=== PATIENT | female | born 1940 | race Caucasian/White ===

== ENCOUNTER 2017-11-05 12:55 | Emergency (ER) | payer MEDICARE, BC ==
[2017-11-05] MEDS ORDERED: traMADol 50 MG Tab PO ONE ×2 (13:20→14:24)
--- NOTE | 2017-11-05 13:25 | EDM.PDOC ---
ED HPI GENERAL MEDICAL PROBLEM - General Chief Complaint: General Stated Complaint: FEET SWOLLEN, CAN'T WALK, WEAKNESS Time Seen by Provider: 11/05/17 13:00 Source of Information: Reports: Patient, Old Records History Limitations: Reports: No Limitations - History of Present Illness INITIAL COMMENTS - FREE TEXT/NARRATIVE: Lorin comes into [facility] ED with complaints of generalized pain affecting muscles and joints, worse on the L side today. Her supply of Tramadol for generalized pain was discontinued by her PCP last month, and she has felt miserable ever since. There is a PMH of polymyalgia rheumatica and rheumatoid arthritis, managed by a radio operator including Prednison 20mg per day and Methotrexate 7 tabs once weekly. Generalized Pain Score (Numeric/FACES): 10 - Related Data Allergies Allergy/AdvReac Type Severity Reaction Status Date / Time amoxicillin trihydrate Allergy Nausea Verified 11/05/17 13:03 [From Augmentin] codeine Allergy Dizziness Verified 11/05/17 13:03 potassium clavulanate Allergy Nausea Verified 11/05/17 13:03 [From Augmentin] dust Allergy Cough Uncoded 11/05/17 13:03 mold Allergy Cough Uncoded 11/05/17 13:03 Home Meds: Home Meds Acetaminophen [Tylenol Arthritis Pain] 1,000 mg PO BID PRN 03/21/14 [History] Aspirin 325 mg PO DAILY 03/21/14 [History] Calcium Carbonate [Calcium] 1,000 mg PO DAILY 03/21/14 [History] Calcium Polycarbophil [Fiber Tabs] 625 mg PO DAILY 03/21/14 [History] Clopidogrel [Plavix] 75 mg PO DAILY 03/21/14 [History] Cyanocobalamin (Vitamin B12) [Vitamin B12] 1,000 mcg PO DAILY 03/21/14 [History] Fexofenadine/Pseudoephedrine [Melodie-D 12 Hour Tablet] 1 tab PO BID PRN [History] Metoprolol Tartrate 25 mg PO BID 03/21/14 [History] Isabella-3 Fatty Acids [Isabella-3] 1,000 mg PO BID 03/21/14 [History] Sennosides/Docusate Sodium [Senna S Tablet] 3 each PO QPM 03/21/14 [History] Simvastatin [Zocor] 40 mg PO BEDTIME 03/21/14 [History] Folic Acid 1 mg PO DAILY 11/05/17 [History] Gabapentin [Neurontin] 100 mg PO BID 11/05/17 [History] Levothyroxine [Synthroid] 50 mcg PO ACBREAKFAST 11/05/17 [History] Methotrexate Sodium [Methotrexate] 2.5 mg PO ASDIRECTED 11/05/17 [History] Past Medical History Cardiovascular History: Reports: Hypertension Musculoskeletal History: Reports: RA, Other (See Below) (polymyalgia rheumatica) Social & Family History - Tobacco Use Years of Tobacco use: 10 - Caffeine Use Caffeine Use: Reports: Coffee, Soda - Alcohol Use Days Per Week of Alcohol Use: 0 - Recreational Drug Use Recreational Drug Use: No ED ROS GENERAL - Review of Systems Review Of Systems: See Below Constitutional: Reports: Malaise, Weakness, Fatigue HEENT: Reports: Hearing Loss Respiratory: Reports: No Symptoms Cardiovascular: Reports: Edema (dependent in ankles and feet) Endocrine: Reports: Fatigue GI/Abdominal: Reports: No Symptoms : Reports: No Symptoms Musculoskeletal: Reports: Neck Pain, Shoulder Pain, Arm Pain, Back Pain, Hand Pain, Leg Pain, Foot Pain, Joint Pain, Joint Swelling, Muscle Pain Skin: Reports: No Symptoms Neurological: Reports: No Symptoms Psychiatric: Reports: No Symptoms Hematologic/Lymphatic: Reports: No Symptoms Immunologic: Reports: No Symptoms ED EXAM, GENERAL - Physical Exam Exam: See Below Exam Limited By: No Limitations General Appearance: Alert, WD/WN, No Apparent Distress, Obese Eye Exam: Bilateral Eye: EOMI, Normal Inspection, PERRL Ears: Normal External Exam Nose: Normal Inspection Throat/Mouth: Normal Inspection, Normal Lips, Normal Oropharynx, Normal Voice Head: Normocephalic, Other (cushingoid facies) Neck: Normal Inspection, Supple Respiratory/Chest: Lungs Clear, Normal Breath Sounds, Chest Non-Tender Cardiovascular: Regular Rate, Rhythm, No Murmur GI/Abdominal: Normal Bowel Sounds, Soft, No Organomegaly, No Distention, No Mass (Female) Exam: Deferred Rectal (Female) Exam: Deferred Back Exam: Decreased Range of Motion Extremities: Joint Swelling (2nd and 3rd MCP, knees), Limited Range of Motion ( L shoulder to FF, ABD, ADD, and EXT) Neurological: Alert, Oriented, CN II-XII Intact Psychiatric: Normal Affect, Normal Mood Skin Exam: Warm, Dry Lymphatic: No Adenopathy Course - Vital Signs Text/Narrative:: A review of x rays of hands notes extensive arthritic changes at the 1st c-mc and mcp joints of the 1st, 2nd and 3rd respectively. The L shoulder notes marked narrowing of the glenohumeral joint. Screenng lab tests noted ESR 44 mm/ hr, CRP 2.8, remaining results baseline. Lorin has chronic rheumatoid arthritis, and is in need of pain management and disposition regarding status of DMARDS and Prednisone. Last Recorded V/S: Last Vital Signs Temp 36.4 C 11/05/17 13:04 Pulse 70 11/05/17 13:04 Resp 18 11/05/17 13:04 BP 122/72 11/05/17 13:04 Pulse Ox 98 11/05/17 13:04 - Orders/Labs/Meds Orders: Active Orders 24 hr Category Date Time Status Hand 2V Bi [CR] Stat Exams 11/05/17 13:18 Taken Shoulder 1V Lt [CR] Stat Exams 11/05/17 13:18 Taken Labs: Laboratory Tests 11/05/17 11/05/17 11/05/17 Range/Units 13:25 13:25 13:25 WBC 11.8 (4.5-12.0) X10-3/uL RBC 3.73 (3.23-5.20) x10(6)uL Hgb 11.8 (11.5-15.5) g/dL Hct 34.9 (30.0-51.3) % MCV 93.4 (80-96) fL MCH 31.6 (27.7-33.6) pg MCHC 33.9 (32.2-35.4) g/dL RDW 16.9 H (11.5-15.5) % Plt Count 214 (125-369) X10(3)uL MPV 8.2 (7.4-10.4) fL Add Manual Diff Yes Neutrophils % (Manual) 94 H (46-82) % Lymphocytes % (Manual) 4 L (13-37) % Monocytes % (Manual) 2 L (4-12) % Anisocytosis Few ESR 44 H (0-20) mm/hr Sodium 141 (135-145) mmol/L Potassium 4.2 (3.5-5.3) mmol/L Chloride 105 (100-110) mmol/L Carbon Dioxide 28 (21-32) mmol/L BUN 25 H (7-18) mg/dL Creatinine 1.5 H (0.55-1.02) mg/dL Est Cr Clr Drug Dosing 25.23 mL/min Estimated GFR (MDRD) 34 L (>60) BUN/Creatinine Ratio 16.7 (9-20) Glucose 147 H (80-116) mg/dL Calcium 9.6 (8.6-10.2) mg/dL Total Bilirubin 0.6 (0.1-1.3) mg/dL AST 31 H (5-25) IU/L ALT 58 H (12-36) U/L Alkaline Phosphatase 57 (56-112) IU/L C-Reactive Protein 2.8 H* (0.5-0.9) mg/dL Total Protein 6.5 (6.0-8.0) g/dL Albumin 3.2 (3.2-4.6) g/dL Globulin 3.3 g/dL Albumin/Globulin Ratio 1.0 Meds: Medications Discontinued Medications Generic Name Dose Route Start Last Admin Trade Name Freq PRN Reason Stop Dose Admin Tramadol HCl 50 mg 11/05/17 13:20 11/05/17 13:24 Ultram PO 11/05/17 13:21 50 mg ONETIME ONE Administration Departure - Departure Time of Disposition: 14:27 Disposition: Home, Self-Care 01 Condition: Fair Clinical Impression: Rheumatoid arthritis Qualifiers: Rheumatoid arthritis location: multiple sites Rheumatoid factor presence: unspecified presence Qualified Code(s): M06.9 - Rheumatoid arthritis, unspecified - Discharge Information Referrals: Robel Jefferson MD [Primary Care Provider] - Forms: ED Department Discharge - Problem List & Annotations (1) Rheumatoid arthritis SNOMED Code(s): 07189310 Code(s): M06.9 - RHEUMATOID ARTHRITIS, UNSPECIFIED Status: Acute Current Visit: Yes Annotation/Comment:: I dispensed Tramadol 50 mg #8 not to exceed 4 tabs per day. Follow up with PCP or [employer] Operator regarding chronic pain management. Qualifiers: Rheumatoid factor presence: unspecified presence Laterality: bilateral - Problem List Review Problem List Initiated/Reviewed/Updated: Yes - My Orders Last 24 Hours: My Active Orders 11/05/17 13:18 Hand 2V Bi [CR] Stat Shoulder 1V Lt [CR] Stat - Assessment/Plan Last 24 Hours: My Active Orders 11/05/17 13:18 Hand 2V Bi [CR] Stat Shoulder 1V Lt [CR] Stat Plan: Follow up with PCP.
--- NOTE | 2017-11-07 11:41 | CR ---
INDICATION: Pain and stiffness, no injury, history of rheumatoid arthritis. BILATERAL HANDS: Frontal and lateral views of the hands were obtained, 2017, and revealed findings compatible with osteoarthritis at the navicular multangular joints, first metacarpal-carpal joints, interphalangeal joints of the thumbs, first and second metacarpophalangeal joints, and variably in the PIP joints and DIP joints, most severe at the DIP joints of the second and third fingers on the right and second and third fingers on the left, as well as at the interphalangeal joints of the thumbs bilaterally. The PIP joint degenerative changes are most severe at the left second, third, and especially the fifth fingers, and at the second, third, and fifth fingers on the right. Minimal degenerative changes are noted at the radiocarpal joints. 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 MTDD
--- NOTE | 2017-11-07 11:42 | CR ---
INDICATION: Pain and stiffness, no history of injury, history of rheumatoid arthritis. LEFT SHOULDER: Two frontal views of the left shoulder were obtained. The glenohumeral joint was not well delineated. There appears to be some mild degenerative change at the glenohumeral joint. Joint space is difficult to evaluate with these images obtained. A more extensive left shoulder examination may be warranted with four views of the left shoulder and improved positioning. There is noted a small bony density along the cranial aspect of the distal clavicle, which may represent an ununited accessory ossification center, or possibly a chip fracture fragment that did not unite from previous injury. Overall bone density appeared to be normal. MTDD
== END 2017-11-05 14:30 | disposition home or self-care (01) ==
LOC: FB.ED 12:55
DX: M06.9 Rheumatoid arthritis, unspecified (principal); I10 Essential (primary) hypertension; Z88.1 Allergy status to other antibiotic agents; Z88.5 Allergy status to narcotic agent; Z91.048 Other nonmedicinal substance allergy status; Z79.82 Long term (current) use of aspirin; Z79.899 Other long term (current) drug therapy
CPT/HCPCS: 36415; 73020; 73120; 80053; 85025; 85651; 86140; 99283; A9270

== ENCOUNTER 2023-08-06 17:32 | Inpatient (IN) | payer MEDICARE, BC ==
[2023-08-06] MEDS ORDERED: Sodium Chloride 0.9% 10 ML Syringe FLUSH PRN (17:38)
[2023-08-06 17:54] LABS: BASOPHILS PERCENT AUTO 0.3 % (0.2-1.5); EOSINOPHILS ABSOLUTE AUTO 0.1 x10-3/uL (0.0-0.8); EOSINOPHILS PERCENT AUTO 0.6 % (0.6-8.1); HEMATOCRIT 39.1 % (34.2-48.2); LYMPHOCYTES ABSOLUTE AUTO 0.8 x10-3/uL (1.0-4.4); LYMPHOCYTES PERCENT AUTO 7.6 % (18.4-52.1); MEAN CORPUSCULAR HEMOGLOBIN 28.4 pg (23.9-33.9); MEAN CORPUSCULAR HGB CONC 33.4 g/dL (31.9-34.8); MEAN CORPUSCULAR VOLUME 85.3 fL (76.7-100.5); MEAN PLATELET VOLUME 8.2 fL (7.1-12.4); MONOCYTES ABSOLUTE AUTO 0.9 x10-3/uL (0.3-1.0); MONOCYTES PERCENT AUTO 8.5 % (4.4-15.7); PLATELET COUNT,PLT 226 x10(3)uL (151-488); RED BLOOD CELL COUNT 4.59 x10(6)uL (3.60-5.20); RED CELL DISTRIBUTION WIDTH 16.7 % (12.3-16.5); WHITE BLOOD CELL COUNT,WBC 10.8 x10-3/uL (3.0-10.3)
[2023-08-06] MEDS ORDERED: Ondansetron 4 MG/2 ML SDV IVPUSH ONE (18:00)
[2023-08-06 18:05] LABS: A/G RATIO 0.9; ALANINE AMINOTRANSFERASE,ALT 37 U/L (12-36); ALBUMIN 3.8 g/dL (3.2-4.6); ALKALINE PHOSPHATASE 69 IU/L (56-112); ASPARTATE AMNIOTRANSFERASE,AST 34 IU/L (5-25); BILIRUBIN TOTAL 0.5 mg/dL (0.1-1.3); BLOOD UREA NITROGEN,BUN 34 mg/dL (7-18); BUN/CREATININE RATIO 16.2 (9-20); CALCIUM 8.9 mg/dL (8.6-10.2); CARBON DIOXIDE,CO2 20 mmol/L (21-32); CHLORIDE,CL 97 mmol/L (100-110); EST CRCL DRUG DOSING (CG) 15.09 mL/min; ESTIMATED GFR 23 mL/min (>60); GLUCOSE RANDOM 116 mg/dL (80-116); POTASSIUM,K 4.7 mmol/L (3.5-5.3); PROTEIN TOTAL,TP 8.1 g/dL (6.0-8.0); SODIUM,NA 130 mmol/L (135-145)
[2023-08-06 18:07] LABS: CREATININE 2.1 mg/dL (0.55-1.02)
[2023-08-06 18:12] LABS: LACTIC ACID 1.5 mmol/L (0.4-2.0); TROPONIN I 5.1 pg/mL (4.0-60.3)
[2023-08-06] MEDS: Sodium Chloride 0.9% 1,000 ML IV SCH ×2 (18:14→20:31)
[2023-08-06 18:18] LABS: INFLUENZA A NAA NEGATIVE (NEGATIVE); INFLUENZA B NAA NEGATIVE (NEGATIVE)
[2023-08-06 18:19] LABS: CORONAVIRUS COVID-19 NAA NEGATIVE (NEGATIVE)
[2023-08-06] MEDS ORDERED: Acetaminophen 500 MG Tab PO ONE (18:30)
[2023-08-06] MEDS ORDERED: traMADol 50 MG Tab PO ONE (18:30)
[2023-08-06] MEDS ORDERED: Ondansetron 4 MG/2 ML SDV IV PRN (18:36)
[2023-08-06] MEDS ORDERED: traMADol 50 MG Tab PO PRN (18:36)
[2023-08-06] MEDS ORDERED: Sennosides/Docusate Sodium 50-8.6 MG Tab PO PRN (18:36)
[2023-08-06] MEDS ORDERED: Diclofenac Sodium 1% Gel 100 GM Tube TOP PRN (18:52)
[2023-08-06] MEDS ORDERED: Azelastine Nasal Soln 30 ML Spray Bottle NAS PRN (18:52)
[2023-08-06] MEDS ORDERED: Albuterol 6.7 GM Inhaler INH PRN (18:52)
[2023-08-06] MEDS ORDERED: Nitroglycerin 0.4 MG Tab.SL SL PRN (18:52)
[2023-08-06] MEDS ORDERED: Atropine/Diphenoxylate 0.025-2.5 MG Tab PO ONE (19:09)
[2023-08-06 19:40] LABS: BILIRUBIN,URINE NEGATIVE (NEGATIVE); GLUCOSE,URINE NORMAL (NORMAL); KETONES,URINE NEGATIVE (NEGATIVE); LEUKOCYTE ESTERASE,URINE NEGATIVE (NEGATIVE); NITRITE,URINE NEGATIVE (NEGATIVE); OCCULT BLOOD,URINE NEGATIVE (NEGATIVE); PROTEIN,URINE TRACE mg/dL (NEGATIVE); UROBILINOGEN,URINE NORMAL (NEGATIVE)
[2023-08-06 19:49] LABS: AMORPHOUS SEDIMENT,URINE FEW; APPEARANCE,URINE CLEAR (CLEAR); BACTERIA,URINE FEW (NS); COLOR,URINE YELLOW (YELLOW); RBC,URINE 0-5 (0-5); SQUAMOUS EPITHELIAL CELLS,UR OCCASIONAL (NS,R,O); WBC,URINE 0-5 (0-5)
[2023-08-06] MEDS: Enoxaparin 30 MG/0.3 ML Syringe SUBCUT SCH (20:07)
[2023-08-06] MEDS: Fish Oil/Omega-3 Fatty Acids 1 Gm Cap PO SCH (20:07)
[2023-08-06] MEDS: Metoprolol Tartrate 25 MG Tab PO SCH (20:07)
[2023-08-06] MEDS ORDERED: Nystatin Topical Powder 15 GM Bottle TOP SCH (21:00)
[2023-08-07] MEDS: Acetaminophen 325 MG Tab PO PRN ×2 (05:50→21:07)
[2023-08-07] MEDS: Levothyroxine 50 MCG Tab PO SCH ×2 (05:50→06:40)
[2023-08-07 06:19] LABS: BASOPHILS PERCENT AUTO 0.5 % (0.2-1.5); EOSINOPHILS ABSOLUTE AUTO 0.1 x10-3/uL (0.0-0.8); EOSINOPHILS PERCENT AUTO 2.1 % (0.6-8.1); HEMATOCRIT 33.9 % (34.2-48.2); HEMOGLOBIN 11.3 g/dL (11.4-15.5); LYMPHOCYTES ABSOLUTE AUTO 1.1 x10-3/uL (1.0-4.4); LYMPHOCYTES PERCENT AUTO 18.4 % (18.4-52.1); MEAN CORPUSCULAR HEMOGLOBIN 28.4 pg (23.9-33.9); MEAN CORPUSCULAR HGB CONC 33.3 g/dL (31.9-34.8); MEAN CORPUSCULAR VOLUME 85.4 fL (76.7-100.5); MEAN PLATELET VOLUME 8.2 fL (7.1-12.4); MONOCYTES ABSOLUTE AUTO 0.6 x10-3/uL (0.3-1.0); MONOCYTES PERCENT AUTO 10.6 % (4.4-15.7); NEUTROPHILS ABSOLUTE AUTO 4.2 x10-3/uL (1.5-6.3); NEUTROPHILS PERCENT AUTO 68.4 % (30.8-76.2); PLATELET COUNT,PLT 200 x10(3)uL (151-488); RED BLOOD CELL COUNT 3.97 x10(6)uL (3.60-5.20); RED CELL DISTRIBUTION WIDTH 16.7 % (12.3-16.5); WHITE BLOOD CELL COUNT,WBC 6.1 x10-3/uL (3.0-10.3)
[2023-08-07] MEDS: Sodium Chloride 0.9% 1,000 ML IV SCH ×2 (06:28→22:03)
[2023-08-07 06:30] LABS: A/G RATIO 0.9; ALANINE AMINOTRANSFERASE,ALT 29 U/L (12-36); ALBUMIN 3.1 g/dL (3.2-4.6); ALKALINE PHOSPHATASE 52 IU/L (56-112); ASPARTATE AMNIOTRANSFERASE,AST 24 IU/L (5-25); BILIRUBIN TOTAL 0.3 mg/dL (0.1-1.3); BLOOD UREA NITROGEN,BUN 35 mg/dL (7-18); BUN/CREATININE RATIO 17.5 (9-20); CALCIUM 7.7 mg/dL (8.6-10.2); CARBON DIOXIDE,CO2 20 mmol/L (21-32); CHLORIDE,CL 103 mmol/L (100-110); EST CRCL DRUG DOSING (CG) 17.45 mL/min; ESTIMATED GFR 25 mL/min (>60); GLUCOSE RANDOM 89 mg/dL (80-116); POTASSIUM,K 4.4 mmol/L (3.5-5.3); PROTEIN TOTAL,TP 6.7 g/dL (6.0-8.0); SODIUM,NA 134 mmol/L (135-145)
[2023-08-07] MEDS: Metoprolol Tartrate 25 MG Tab PO SCH ×2 (08:20→20:15)
[2023-08-07] MEDS: Isosorbide Mononitrate 30 MG Tab.ER PO SCH (08:20)
[2023-08-07] MEDS: Fish Oil/Omega-3 Fatty Acids 1 Gm Cap PO SCH ×2 (08:58→20:15)
[2023-08-07] MEDS: DULoxetine 60 MG Cap PO SCH (08:58)
[2023-08-07] MEDS: Calcium Polycarbophil 625 MG Tab PO SCH (08:58)
[2023-08-07] MEDS: Cyanocobalamin (Vitamin B12) 1,000 MCG Tab PO SCH (08:58)
[2023-08-07] MEDS ORDERED: Loperamide 2 MG Cap PO ONE (16:30)
[2023-08-07] MEDS: traMADol 50 MG Tab PO PRN (18:36)
[2023-08-07] MEDS: Enoxaparin 30 MG/0.3 ML Syringe SUBCUT SCH (20:15)
[2023-08-08] MEDS: Levothyroxine 50 MCG Tab PO SCH ×2 (06:17→17:35)
[2023-08-08] MEDS: Acetaminophen 325 MG Tab PO PRN ×2 (06:18→16:34)
[2023-08-08] MEDS: Sodium Chloride 0.9% 1,000 ML IV SCH ×2 (08:29→19:24)
[2023-08-08] MEDS: Calcium Polycarbophil 625 MG Tab PO SCH (09:37)
[2023-08-08] MEDS: Fish Oil/Omega-3 Fatty Acids 1 Gm Cap PO SCH ×2 (09:37→20:24)
[2023-08-08] MEDS: DULoxetine 60 MG Cap PO SCH (09:37)
[2023-08-08] MEDS: Isosorbide Mononitrate 30 MG Tab.ER PO SCH (09:37)
[2023-08-08] MEDS: Metoprolol Tartrate 25 MG Tab PO SCH ×2 (09:39→20:24)
[2023-08-08] MEDS: Cyanocobalamin (Vitamin B12) 1,000 MCG Tab PO SCH (09:40)
[2023-08-08 10:29] LABS: BASOPHILS PERCENT AUTO 0.4 % (0.2-1.5); EOSINOPHILS ABSOLUTE AUTO 0.1 x10-3/uL (0.0-0.8); EOSINOPHILS PERCENT AUTO 1.3 % (0.6-8.1); HEMATOCRIT 32.2 % (34.2-48.2); HEMOGLOBIN 10.5 g/dL (11.4-15.5); LYMPHOCYTES ABSOLUTE AUTO 1.4 x10-3/uL (1.0-4.4); LYMPHOCYTES PERCENT AUTO 17.3 % (18.4-52.1); MEAN CORPUSCULAR HEMOGLOBIN 28.1 pg (23.9-33.9); MEAN CORPUSCULAR HGB CONC 32.7 g/dL (31.9-34.8); MONOCYTES ABSOLUTE AUTO 0.9 x10-3/uL (0.3-1.0); MONOCYTES PERCENT AUTO 11.3 % (4.4-15.7); NEUTROPHILS ABSOLUTE AUTO 5.6 x10-3/uL (1.5-6.3); NEUTROPHILS PERCENT AUTO 69.7 % (30.8-76.2); PLATELET COUNT,PLT 189 x10(3)uL (151-488); RED BLOOD CELL COUNT 3.74 x10(6)uL (3.60-5.20); RED CELL DISTRIBUTION WIDTH 17.3 % (12.3-16.5); WHITE BLOOD CELL COUNT,WBC 8.1 x10-3/uL (3.0-10.3)
[2023-08-08 10:34] LABS: BLOOD UREA NITROGEN,BUN 29 mg/dL (7-18); BUN/CREATININE RATIO 19.3 (9-20); CALCIUM 7.5 mg/dL (8.6-10.2); CARBON DIOXIDE,CO2 17 mmol/L (21-32); CHLORIDE,CL 107 mmol/L (100-110); CREATININE 1.5 mg/dL (0.55-1.02); EST CRCL DRUG DOSING (CG) 23.26 mL/min; ESTIMATED GFR 35 mL/min (>60); GLUCOSE RANDOM 95 mg/dL (80-116); POTASSIUM,K 4.1 mmol/L (3.5-5.3); SODIUM,NA 135 mmol/L (135-145)
[2023-08-08 10:40] LABS: ALANINE AMINOTRANSFERASE,ALT 26 U/L (12-36); ALBUMIN 3.1 g/dL (3.2-4.6); ALKALINE PHOSPHATASE 52 IU/L (56-112); ASPARTATE AMNIOTRANSFERASE,AST 17 IU/L (5-25); BILIRUBIN TOTAL 0.2 mg/dL (0.1-1.3); PROTEIN TOTAL,TP 6.3 g/dL (6.0-8.0)
[2023-08-08] MEDS: traMADol 50 MG Tab PO PRN ×2 (11:28→23:28)
[2023-08-08] MEDS: Loperamide 2 MG Cap PO PRN ×2 (14:33→20:25)
[2023-08-08] MEDS: Enoxaparin 30 MG/0.3 ML Syringe SUBCUT SCH (20:23)
[2023-08-09] MEDS: Acetaminophen 325 MG Tab PO PRN ×2 (00:50→05:46)
[2023-08-09] MEDS: Loperamide 2 MG Cap PO PRN (01:33)
[2023-08-09] MEDS ORDERED: Levothyroxine 50 MCG Tab PO SCH (06:00)
[2023-08-09 06:33] LABS: BASOPHILS PERCENT AUTO 0.5 % (0.2-1.5); EOSINOPHILS ABSOLUTE AUTO 0.1 x10-3/uL (0.0-0.8); EOSINOPHILS PERCENT AUTO 1.1 % (0.6-8.1); HEMATOCRIT 30.7 % (34.2-48.2); LYMPHOCYTES ABSOLUTE AUTO 1.3 x10-3/uL (1.0-4.4); LYMPHOCYTES PERCENT AUTO 17.3 % (18.4-52.1); MEAN CORPUSCULAR HEMOGLOBIN 28.1 pg (23.9-33.9); MEAN CORPUSCULAR HGB CONC 32.7 g/dL (31.9-34.8); MEAN CORPUSCULAR VOLUME 85.8 fL (76.7-100.5); MEAN PLATELET VOLUME 7.8 fL (7.1-12.4); MONOCYTES ABSOLUTE AUTO 0.9 x10-3/uL (0.3-1.0); MONOCYTES PERCENT AUTO 11.1 % (4.4-15.7); NEUTROPHILS ABSOLUTE AUTO 5.4 x10-3/uL (1.5-6.3); PLATELET COUNT,PLT 197 x10(3)uL (151-488); RED BLOOD CELL COUNT 3.58 x10(6)uL (3.60-5.20); RED CELL DISTRIBUTION WIDTH 16.9 % (12.3-16.5); WHITE BLOOD CELL COUNT,WBC 7.8 x10-3/uL (3.0-10.3)
[2023-08-09 06:42] LABS: A/G RATIO 0.9; ALANINE AMINOTRANSFERASE,ALT 27 U/L (12-36); ALKALINE PHOSPHATASE 61 IU/L (56-112); ASPARTATE AMNIOTRANSFERASE,AST 21 IU/L (5-25); BILIRUBIN TOTAL 0.3 mg/dL (0.1-1.3); BLOOD UREA NITROGEN,BUN 22 mg/dL (7-18); BUN/CREATININE RATIO 15.7 (9-20); CALCIUM 7.7 mg/dL (8.6-10.2); CARBON DIOXIDE,CO2 18 mmol/L (21-32); CHLORIDE,CL 105 mmol/L (100-110); CREATININE 1.4 mg/dL (0.55-1.02); EST CRCL DRUG DOSING (CG) 24.93 mL/min; ESTIMATED GFR 38 mL/min (>60); GLUCOSE RANDOM 99 mg/dL (80-116); POTASSIUM,K 4.3 mmol/L (3.5-5.3); PROTEIN TOTAL,TP 6.3 g/dL (6.0-8.0); SODIUM,NA 128 mmol/L (135-145)
[2023-08-09] MEDS: Isosorbide Mononitrate 30 MG Tab.ER PO SCH (08:43)
[2023-08-09] MEDS: Metoprolol Tartrate 25 MG Tab PO SCH (08:43)
[2023-08-09] MEDS: DULoxetine 60 MG Cap PO SCH (08:43)
[2023-08-09] MEDS: Fish Oil/Omega-3 Fatty Acids 1 Gm Cap PO SCH (08:43)
[2023-08-09] MEDS: Cyanocobalamin (Vitamin B12) 1,000 MCG Tab PO SCH (08:44)
[2023-08-09] MEDS: Sodium Chloride 0.9% 1,000 ML IV SCH (08:58)
== END 2023-08-09 12:46 | disposition home or self-care (01) | DRG 392 ==
LOC: FB.ED 17:32 → FB.MS 19:02 → OBSVTOIN 08-08 14:07
PROVIDERS: ADMIT Emergency Medicine; ATTEND Family Medicine
DX: A08.4 Viral intestinal infection, unspecified (principal); K52.9 Noninfective gastroenteritis and colitis, unspecified; R07.89 Other chest pain; I13.0 Hypertensive heart and chronic kidney disease with heart failure and stage 1 through stage 4 chronic kidney disease, or unspecified chronic kidney disease; N17.9 Acute kidney failure, unspecified; E87.1 Hypo-osmolality and hyponatremia; E86.0 Dehydration; R53.1 Weakness; R42 Dizziness and giddiness; Z66 Do not resuscitate; I50.9 Heart failure, unspecified; K59.00 Constipation, unspecified; A05.9 Bacterial foodborne intoxication, unspecified; J45.909 Unspecified asthma, uncomplicated; N18.9 Chronic kidney disease, unspecified; I25.118 Atherosclerotic heart disease of native coronary artery with other forms of angina pectoris; Z11.52 Encounter for screening for COVID-19; Z95.1 Presence of aortocoronary bypass graft; M35.3 Polymyalgia rheumatica; Z88.8 Allergy status to other drugs, medicaments and biological substances; I25.810 Atherosclerosis of coronary artery bypass graft(s) without angina pectoris; M06.9 Rheumatoid arthritis, unspecified; I10 Essential (primary) hypertension; Z87.891 Personal history of nicotine dependence; Z79.82 Long term (current) use of aspirin; Z79.899 Other long term (current) drug therapy; Z91.048 Other nonmedicinal substance allergy status; Z88.5 Allergy status to narcotic agent; Z88.1 Allergy status to other antibiotic agents; Z88.0 Allergy status to penicillin; Z20.822 Contact with and (suspected) exposure to COVID-19
CPT/HCPCS: 0240U; 36415; 71045; 80053; 81001; 83605; 83880; 84443; 84484; 85025; 87230; 93005; 93010; 96361; 96372; 96374; 99222; 99232; 99238; 99284; 99285; A9270-GY; G0378; J1650; J2405; J3490; J7030; J7512